=== PATIENT | female | born 1995 | race Two or more races ===

== ENCOUNTER → 2017-05-16 | Outpatient (CLI) | payer OTHER ==
--- NOTE | 2017-05-18 10:38 | ECHO ---
DATE OF PROCEDURE: 05/16/2017 REFERRING PHYSICIAN: Don Rueda MD INDICATION: Heart murmur. HEIGHT: 61 inches WEIGHT: 54 kg MEASUREMENTS: Left atrium: 2.9 cm Ventricular septum: 0.83 cm Posterior wall: 0.82 cm Left ventricle diastole: 4.1 cm Aortic root: 2.4 cm LVOT: 1.7 cm Inferior vena cava: 1.3 cm DOPPLER MEASUREMENTS: Aortic valve velocity: 121 cm/s LVOT velocity: 73.7 cm/s LVOT VTI: 16.3 cm Mitral E velocity: 112 cm/s Mitral A velocity: 44.4 cm/s Mitral deceleration time: 134 ms Very mild tricuspid regurgitation within normal limits. Estimated right ventricular systolic pressure: 25 mmHg assuming a right atrial pressure of 5 mmHg Mild pulmonic regurgitation within normal limits. Pulmonary artery systolic pressure: 17 mmHg by pulmonary acceleration time method MITRAL ANNULAR TISSUE DOPPLER: E prime septal: 12.3 cm/s E prime lateral: 18.9 cm/s DESCRIPTION: Rhythm was sinus. No pericardial effusion. This was a 2D, M-mode, color flow Doppler, and pulsed wave Doppler examination and included mitral annular tissue Doppler. Image quality was adequate. CONCLUSIONS: 1. Normal left ventricle internal dimensions and wall thickness. Normal left ventricle (LV) wall motion and wall thickening. Normal LV systolic function. Left ventricular ejection fraction (LVEF) 65% by visual estimate. Supernormal LV diastolic function, consistent with age. 2. No coarctation of the aorta. 3. Structurally and functionally normal cardiac valves. 4. Normal echocardiogram Doppler.
== END ==
LOC: M CARPUL 12:48
PROVIDERS: ATTEND Internal Medicine
DX: R01.1 Cardiac murmur, unspecified (principal)